=== PATIENT | male | born 1940 | race American Indian/Alaskan Native ===

== ENCOUNTER 2016-07-08 12:23 | Outpatient (CLI) | payer MEDICARE | END 2016-07-08 12:24 | disposition home or self-care (01) | LOC: LAB 12:23 | PROVIDERS: ATTEND Internal Medicine Gastroenterology | DX: R63.4 Abnormal weight loss (principal); R10.9 Unspecified abdominal pain; R19.4 Change in bowel habit | CPT/HCPCS: 36415; 82705; 85007; 87045; 87177; 87493 ==